=== PATIENT | female | born 1975 | race Caucasian/White ===

== ENCOUNTER 2016-03-04 16:51 | Emergency (ER) | payer SELFPAY ==
[~2016-03-04] VITALS: Wt 70.0 kg
[~2016-03-04 16:51] MED LIST: HYDR-3498 PO
[2016-03-04 19:18] LABS: URINE BLOOD (Dip) POC 2+ (NEGATIVE)
[2016-03-04] MEDS ORDERED: SERT100T PO (19:25)
[2016-03-04] MEDS ORDERED: LORA-444 PO (19:26)
[2016-03-04] MEDS ORDERED: IBUPROFEN 800 MG TAB PO ONE (19:30)
--- NOTE | 2016-03-04 19:50 | RADRPT ---
PROCEDURE: Chest x-ray CLINICAL INDICATION: Chest pain TECHNIQUE: Chest single view COMPARISON: None FINDINGS: The heart is normal in size. The pulmonary vessels are normal in caliber. The lungs are clear. Th e costophrenic angles are sharp. The visualized bony thorax is unremarkable. IMPRESSION: No acute cardiopulmonary disease. RPTAT: HH .Dilan Juarez MD, Date Time Electronically viewed and signed by .Dilan Juarez MD, MD on 03/04/2016 19:50 .W/
[2016-03-04] MEDS ORDERED: IBUP-1542 PO (20:21)
--- NOTE | 2016-03-04 20:34 | ERD ---
ER Documentation Chief Complaint Date/Time DATE: 03/04/16 TIME: 20:32 Chief Complaint CHEST PALPATATION FOR THE PAST 24 HOURS. NO N/V. NO SOB NOTED. HPI Patient is a 40-year-old female with depression who presents with palpitations. She started with palpitations yesterday. She has headache and right eye twitching. She has nausea but no vomiting or diarrhea. She has no fevers and no cough. She tried Tylenol. She has no leg swelling. She does not currently have a primary doctor. Upon review of old medical record she had one previous visit in 2015. ROS All systems reviewed and are negative except as per history of present illness. Medications Home Meds Active Scripts Ibuprofen* (Motrin*) 600 Mg Tab, 600 MG PO Q6H Y for PAIN AND OR ELEVATED TEMP, #30 TAB Prov:ROSMERY PLATA MD 03/04/16 Reported Medications Lorazepam* (Ativan*) 2 Mg Tablet, 2 MG PO HS, #30 TAB 03/04/16 Sertraline Hcl* (Zoloft*) 100 Mg Tablet, 100 MG PO DAILY, #30 TAB 03/04/16 Discontinued Scripts Hydrocodone Bit-Acetaminophen* (Cerulean*) 5-325 Mg Tab, 1 TAB PO Q6 Y for PAIN, # 10 TAB Prov:LEANA HARP PA-C 08/12/14 Allergies Allergies: Coded Allergies: Penicillins (Unverified Allergy, Unknown, 03/04/16) PMhx/Soc Medical and Surgical Hx: pt denies Medical Hx, pt denies Surgical Hx Hx Alcohol Use: No Hx Substance Use: No Hx Tobacco Use: No Smoking Status: Never smoker FmHx Family History: No diabetes Physical Exam Vitals Vital Signs Date Time Temp Pulse Resp B/P Pulse Ox O2 Delivery O2 Flow Rate FiO2 03/04/16 17:03 97.7 102 21 155/89 98 Physical Exam Const: No acute distress Head: Atraumatic Eyes: Normal Conjunctiva ENT: Normal External Ears, Nose and Mouth. Neck: Full range of motion..~ No meningismus. Resp: Clear to auscultation bilaterally Cardio: Regular rate and rhythm, no murmurs Abd: Soft, non tender, non distended. Normal bowel sounds Skin: No petechiae or rashes Back: No midline or flank tenderness Ext: No cyanosis, or edema Neur: Awake and alert Psych: Normal Mood and Affect Results 24 hrs Laboratory Tests Test 03/04/16 19:18 Bedside Urine Blood 2+ Bedside Urine Glucose (UA) Negative Bedside Urine Ketones (LAB) Negative Bedside Urine Leukocyte Esterase (L Negative Bedside Urine Nitrite (LAB) Negative Bedside Urine Protein (LAB) Negative Bedside Urine pH (LAB) 7.0 Current Medications Medications (Trade) Dose Ordered Sig/Juanpablo Route PRN Reason Start Time Stop Time Status Last Admin Dose Admin Ibuprofen (Motrin) 800 mg ONCE ONCE PO 03/04/16 19:30 03/04/16 19:31 DC 03/04/16 19:20 Procedures/MDM EKG read by me: Rate/Rhythm: Regular rate and rhythm at a normal rate Intervals: Normal Impression: No evidence of ischemia or arrhythmia Chest X-ray 1V Interpreted by me: Soft Tissue: No acute abnormalities Bones: No acute abnormalities Mediastinum/Cardiac Silhouette/Lungs: No acute abnormalities Patient is a 40-year-old female with no medical problems or cardiac risk factors who presents with palpitations and headache. She is well-appearing in the emergency department. Her EKG and chest x-ray are negative. Her urine test is negative. At this point I believe outpatient management is appropriate. She was given ibuprofen and feels better. The patient will be discharged home with a prescription for ibuprofen. She can return sooner for any worsening symptoms. Departure Diagnosis: Primary Impression: Chest pain Chest pain type: unspecified Qualified Code: R07.9 - Chest pain, unspecified type Additional Impression: Palpitations Condition: Fair Patient Instructions: Chest Pain, Uncertain Cause, Palpitations Referrals: [facility] irene hecho un examen mdico de control que le indica que no est en bola condicin que requiera tratamiento urgente en el Departamento de Emergencia. Un estudio ms profundo y el tratamiento de pham condicin pueden esperar sin ningn riesgo hasta que usted sea atendida/o en el consultorio de pham mdico o bola cl francis. Es responsabilidad suya arreglar bola gretchen para el seguimiento del stephen. MANEJO DE CONDICIONES NO URGENTES EN EL FUTURO 1) Si usted tiene un mdico de atencin primaria: Usted debera llamar a pham mdico de atencin primaria antes de venir al departamento de emergencia. Despus de las horas de consultorio, pham doctor o pham asociado/a est disponible por telfono. El mdico o enfermero de winnie en el servicio telefnico puede asesorarle por lyndon medio para atender el problema, o stephen contrario se puede programar bola gretchen. 2) Si usted no tiene un mdico de atencin primaria: Llame al mdico o clnica de referencia que aparece abajo leandro las horas de consultorio para hacer bola gretchen para que le vean. CLINICAS: [place] [id number] [phone] [facility] [phone] [facility] [phone] [place] [phone] [place] [phone] [place] [id number] [phone] Additional Instructions: Llame al doctor MAANA y marlon bola GRETCHEN PARA DENTRO DE 1-2 GARRIDO.Dgale a la secretaria que nosotros le instruimos hacer esta gretchen.Avise o llame si pahm condicin se empeora antes de la gretchen. Regresa aqui si peor o no mejor. ROSMERY PLATA MD Mar 04, 2016 20:33
== END 2016-03-04 20:30 | disposition home or self-care (01) ==
LOC: E/R 16:51
DX: R07.9 Chest pain, unspecified (principal); R40.2252 Coma scale, best verbal response, oriented, at arrival to emergency department; R40.2362 Coma scale, best motor response, obeys commands, at arrival to emergency department; R40.2142 Coma scale, eyes open, spontaneous, at arrival to emergency department
CPT/HCPCS: 71010; 81003; 93005